=== PATIENT | female | born 1960 | race Two or more races ===

== ENCOUNTER 2023-02-02 22:57 | Emergency (ER) | payer OTHER ==
[~2023-02-02] VITALS: Ht 167.6 cm; Wt 95.3 kg
[2023-02-02] MEDS ORDERED: VERELAN PM100 MG PO (23:14)
[2023-02-02] MEDS ORDERED: ATACAND32 MG PO (23:14)
[2023-02-02] MEDS ORDERED: GLUMETZA500 MG PO (23:15)
[2023-02-02] MEDS ORDERED: ADULT LOW DOSE81 M1 PO (23:15)
[2023-02-02] MEDS ORDERED: FARXIGA10 MG PO (23:15)
[2023-02-02] MEDS ORDERED: SIMVASTATIN5 MG PO (23:15)
[2023-02-02] MEDS ORDERED: GLIMEPIRIDE4 M1 PO (23:15)
[2023-02-02] MEDS ORDERED: SINGULAIR10 MG PO (23:16)
[2023-02-03] MEDS ORDERED: NABUMETONE750 MG PO (02:41)
[2023-02-03] MEDS ORDERED: NORFLEX100MG PO (02:41)
== END 2023-02-03 02:46 ==
LOC: ER 22:58
DX: S29.012A Strain of muscle and tendon of back wall of thorax, initial encounter (principal); E11.9 Type 2 diabetes mellitus without complications; Z79.84 Long term (current) use of oral hypoglycemic drugs; I10 Essential (primary) hypertension; Z87.09 Personal history of other diseases of the respiratory system; M43.16 Spondylolisthesis, lumbar region; M51.36 Other intervertebral disc degeneration, lumbar region
CPT/HCPCS: 72100; 96372; 99284; J1885